=== PATIENT | female | born 1955 | race Caucasian/White ===

== ENCOUNTER → 2016-11-29 | Day surgery (SDC) | payer OTHER ==
[~2016-11-29] MED LIST: BIOT10TA PO; BUPR300T4 PO; CALC500T50 PO; CITA40TA12 PO; CLON0.5T3 PO; CYCL10TA2 PO; FENTANYL PF 100 MCG/2 ML VIAL. IV PRN; HYDROMORPHONE 2 MG/ML VIAL. IV PRN; IV RINGERS,LACTATED 1000ML 1,000 ML IV SCH; LEVO200T5 PO; LIDOCAINE 1% 1 ML SYRINGE. ID PRN; LIDOCAINE 2% PF Vial for OR 5 ML VIAL. ONE; MORPHINE SULFATE 2 MG/ML DISP.SYRIN. IV PRN; MULT1TAB52 PO; ONDANSETRON PF 4 MG/2 ML VIAL. IV PRN; PRED5DRO6 OP; PROCHLORPERAZINE 10 MG/2 ML VIAL. IV PRN; PROPOFOL 40 ML IV ONE
[2016-11-29 08:30] VITALS: BP 145/76
--- NOTE | 2016-12-02 14:15 | PATHOLOGY ---
PATHOLOGY REPORT * * * * * * * * FINAL DIAGNOSIS: A. Duodenal biopsy: - No significant pathologic abnormalities. B. Random colon biopsy: - No significant pathologic abnormalities. COMMENT: Sections of the duodenal biopsy reveal segments of small intestine mucosa. Where best oriented, the mucosal villi appear normal. There are no sprue-like changes or significant inflammatory changes. Sections of the random colon biopsy reveal multiple segments of colonic mucosa containing several small mucosal- associated lymphoid aggregates. There is no evidence of a chronic destructive colitis, lymphocytic colitis, or collagenous colitis. (JPM:mgr; d/t: 12/02/16) REPORT ELECTRONICALLY SIGNED BY: Dmitry Flood M.D. DATE/TIME: 12/02/2016 14:15 * * * * * * * * GROSS PATHOLOGY: A. Received in formalin labeled "Harmeet Weller, duodenal biopsy, R/O celiac sprue," are seven segments of landin soft tissue measuring 1.2 x 1.2 x 0.3 cm in aggregate dimensions and ranging from 0.3 to 0.7 cm in maximum dimension. The specimen is submitted entirely in cassette A1. B. Received in formalin labeled "Harmeet Weller, random colon biopsies," are multiple (greater than 10) segments of landin soft tissue measuring 1.5 x 1.3 x 0.3 cm in aggregate dimensions and ranging from 0.2 to 0.9 cm in maximum dimension. The specimen is submitted entirely in cassette B1. (CAA; 11/29/2016) INITIAL CPT CODE(S): A; 90224 B; 60449 Professional services performed by [facility] [place] [address] Technical services performed by [facility] at [address] [place] [address] [address] [address]. SPECIMEN(S) RECEIVED: A.Duodenal biopsy B.Random colon biopsies CLINICAL HISTORY: Abdominal pain, diarrhea PATIENT: HARMEET WELLER /AGE: 906/21/1955 (Age: 61) PATIENT #: [id number] ALT CASE #: SPECIMEN COLLECTION DATE: 11/29/2016 SPECIMEN RECEIVED DATE: 11/29/2016 [facility] - [address] [place] [address] - PHONE: [phone] * * * END OF REPORT * * *
== END | disposition home or self-care (01) ==
LOC: ENDOS 05:46
PROVIDERS: ATTEND Internal Medicine Gastroenterology
DX: K57.30 Diverticulosis of large intestine without perforation or abscess without bleeding (principal); K64.0 First degree hemorrhoids; K52.9 Noninfective gastroenteritis and colitis, unspecified; K31.9 Disease of stomach and duodenum, unspecified; Z98.84 Bariatric surgery status; F41.9 Anxiety disorder, unspecified; E03.9 Hypothyroidism, unspecified; M19.90 Unspecified osteoarthritis, unspecified site; Z72.89 Other problems related to lifestyle; Z87.891 Personal history of nicotine dependence; Z90.710 Acquired absence of both cervix and uterus; Z90.49 Acquired absence of other specified parts of digestive tract; Z98.51 Tubal ligation status; Z98.42 Cataract extraction status, left eye; Z98.41 Cataract extraction status, right eye
CPT/HCPCS: 43239; 45380; 88305; J2704

== ENCOUNTER 2016-12-24 14:06 | Emergency (ER) | payer OTHER ==
[~2016-12-24 14:06] MED LIST changes: -FENTANYL PF 100 MCG/2 ML VIAL. IV PRN; -HYDROMORPHONE 2 MG/ML VIAL. IV PRN; -IV RINGERS,LACTATED 1000ML 1,000 ML IV SCH; -LIDOCAINE 1% 1 ML SYRINGE. ID PRN; -LIDOCAINE 2% PF Vial for OR 5 ML VIAL. ONE; -MORPHINE SULFATE 2 MG/ML DISP.SYRIN. IV PRN; -ONDANSETRON PF 4 MG/2 ML VIAL. IV PRN; -PROCHLORPERAZINE 10 MG/2 ML VIAL. IV PRN; -PROPOFOL 40 ML IV ONE
[2016-12-24] MEDS ORDERED: LIPA1CAP8 PO (14:49)
[2016-12-24] MEDS ORDERED: ROPINIROLE 0.25 MG (14:49)
[2016-12-24] MEDS ORDERED: CITA40TA5 PO (14:49)
[2016-12-24] MEDS ORDERED: BUPR300T3 PO (14:49)
[2016-12-24] MEDS ORDERED: CLON0.5T3 PO (14:49)
[2016-12-24] MEDS ORDERED: LEVO200T5 PO (14:49)
[2016-12-24 15:04] LABS: BASO # 0.1 x10^3/uL (0.0-0.2); BASO % 1 % (0-3); EOS % 5 % (0-3); HEMATOCRIT 40.5 % (36.0-47.0); HEMOGLOBIN 13.6 g/dL (12.0-15.5); LYMPH # 2.3 x10^3/uL (1.0-4.8); LYMPH % 48 % (24-48); MEAN CORPUSCULAR HEMOGLOBIN 32 pg (25-35); MEAN CORPUSCULAR HGB CONC 34 g/dL (31-37); MEAN CORPUSCULAR VOLUME 95 fL (79-100); MONO % 11 % (0-9); NEUT % 35 % (31-73); PLATELET COUNT 215 x10^3/uL (140-400); RED BLOOD COUNT 4.27 x10^6/uL (3.50-5.40); RED CELL DISTRIBUTION WIDTH 14.3 % (11.5-14.5); WHITE BLOOD COUNT 4.7 x10^3/uL (4.0-11.0)
[2016-12-24 15:08] LABS: CALCIUM 9.4 mg/dL (8.5-10.1); CREATININE 0.9 mg/dL (0.6-1.0); GFR 63.4; POTASSIUM 3.9 mmol/L (3.5-5.1)
[2016-12-24 15:13] LABS: ALBUMIN 4.1 g/dL (3.4-5.0); DIRECT BILIRUBIN 0.1 mg/dL (0.0-0.2); TOTAL BILIRUBIN 0.7 mg/dL (0.2-1.0); TOTAL PROTEIN 7.3 g/dL (6.4-8.2)
[2016-12-24] MEDS ORDERED: IV NORMAL SALINE 500ML BAG 500 ML IV ONE (15:15)
[2016-12-24] MEDS ORDERED: FENTANYL PF 100 MCG/2 ML VIAL. IV ONE (15:45)
[2016-12-24] MEDS ORDERED: IOHEXOL 300 MG/ML 75 ML VIAL IV ONE (15:45)
[2016-12-24 16:30] VITALS: BP 131/74
--- NOTE | 2016-12-24 16:48 | RAD ---
CT scan of the abdomen and pelvis with contrast 12/24/2016 Clinical history: Abdominal pain for 2 months with nausea and diarrhea. Technique: After the intravenous administration of 75 cc of Omnipaque 300 only, contiguous, 5 mm axial sections were obtained to the abdomen and pelvis. One or more of the following individualized dose reduction techniques were utilized for this study: 1. Automated exposure control. 2. Adjustment of the mA and/or kV according to patient size. 3. Use of iterative reconstruction technique. Findings: Images through the lung bases demonstrate minimal dependent subsegmental atelectasis bilaterally. A 1.2 cm rounded low-attenuation structure is seen involving the left lobe of the liver. This is consistent with a hepatic cyst. Calcified granulomas are seen scattered throughout the spleen. The pancreas, adrenal glands and kidneys are within normal limits. Atherosclerotic calcification of the abdominal aorta and its branches is seen. The abdominal aorta tapers normally. Surgical clips are seen within the gallbladder fossa consistent with a cholecystectomy. No free fluid or free air is seen within the abdomen. There is no evidence of bowel obstruction. Patient is status post gastric bypass type procedure. The appendix is well visualized and is within normal limits. Images through the pelvis demonstrate the urinary bladder distended with urine. The patient appears to be status post hysterectomy. Calcifications are seen within the pelvis consistent with phleboliths. No adnexal mass is seen. No free fluid is noted. Minimal S shaped curvature of the thoracic lumbar spine is seen. Degenerative changes are seen involving the lower thoracic and throughout the lumbar spine and both hips. Patient is status post lumbar laminectomy at L3-4, L4-5 and L5-S1. Impression: No acute abnormality is seen.
[2016-12-24] MEDS ORDERED: DICY10CA3 PO (17:21)
--- NOTE | 2016-12-24 17:21 | PHYS DOC ---
Past Medical History Past Medical History: Arthritis, Pancreatitis Additional Past Medical Histor: DDD,GRAVES DISEASE Past Surgical History: Cholecystectomy, Hysterectomy, Lumbar Laminectomy, Tonsillectomy Additional Past Surgical Histo: THYROIDECTOMY,RIGHT SHOULDER,CARPEL TUNNEL Alcohol Use: None Drug Use: None Adult General Chief Complaint Chief Complaint: ABDOMINAL PAIN HPI HPI Patient is a 61 year old female who presents with months of epigastric abdominal pain associated with nausea and loose stools. States her epigastric abdominal pain is worse over the past 4 days. Her pain is constant and spasm- like. She has had thorough workup for this in the past and has been told it is pancreatitis. She recently started a clear liquid diet at home, but this has not helped her symptoms. She has seen gastroenterology for this in the past. She denies fever or chills, chest pain, dyspnea, cough, bloody stools, emesis, dysuria, hematuria, urinary frequency, urinary hesitancy, back pain. Review of Systems Review of Systems Constitutional: Denies fever or chills [] Eyes: Denies change in visual acuity, redness, or eye pain [] HENT: Denies nasal congestion or sore throat [] Respiratory: Denies cough or shortness of breath [] Cardiovascular: No additional information not addressed in HPI [] GI: Denies vomiting or bloody stools [] : Denies dysuria or hematuria [] Musculoskeletal: Denies back pain or joint pain [] Integument: Denies rash or skin lesions [] Neurologic: Denies headache, focal weakness or sensory changes [] Endocrine: Denies polyuria or polydipsia [] Current Medications Current Medications Current Medications Medications (Trade) Dose Ordered Sig/Marisa Start Time Stop Time Status Last Admin Dose Admin Fentanyl Citrate (Fentanyl 2ml Vial) 50 mcg 1X ONCE 12/24/16 15:45 12/24/16 15:46 DC 12/24/16 15:44 50 MCG Iohexol (Omnipaque 300 Mg/ml) 75 ml 1X ONCE 12/24/16 15:45 12/24/16 15:46 DC 12/24/16 16:10 75 ML Sodium Chloride (Iv Sodium Chloride 0.9% 500ml Bag) 500 ml @ 500 mls/hr 1X ONCE 12/24/16 15:15 12/24/16 16:14 DC 12/24/16 15:04 500 MLS/HR Allergies Allergies Allergies Coded Allergies Type Severity Reaction Last Updated Verified codeine Allergy Intermediate Itching 11/29/16 Yes morphine Allergy Intermediate Itching 11/29/16 Yes tolterodine Allergy Intermediate Anxiety 11/29/16 Yes Physical Exam Physical Exam Constitutional: Well developed, well nourished, no acute distress, non-toxic appearance. [] HENT: Normocephalic, atraumatic, bilateral external ears normal, oropharynx moist, no oral exudates, nose normal. [] Eyes: PERRLA, EOMI. [] Neck: Normal range of motion, supple. [] Cardiovascular:Heart rate regular rhythm [] Lungs & Thorax: Bilateral breath sounds clear to auscultation [] Abdomen: Bowel sounds normal, soft, moderate epigastric tenderness, no guarding or rebound. [] Skin: Warm, dry, no erythema, no rash. [] Back: Normal range of motion. [] Extremities: No tenderness, ROM intact, no edema. [] Neurologic: Alert and oriented X 3, normal motor function, normal sensory function, no focal deficits noted. [] Psychologic: Affect normal, judgement normal, mood normal. [] Current Patient Data Vital Signs Vital Signs Date Time Temp Pulse Resp B/P Pulse Ox O2 Delivery O2 Flow Rate FiO2 12/24/16 16:30 64 131/74 95 Room Air 12/24/16 14:14 18 Lab Values Laboratory Tests Test 12/24/16 14:29 White Blood Count 4.7x10^3/uL (4.0-11.0) Red Blood Count 4.27x10^6/uL (3.50-5.40) Hemoglobin 13.6g/dL (12.0-15.5) Hematocrit 40.5% (36.0-47.0) Mean Corpuscular Volume 95fL (79-100) Mean Corpuscular Hemoglobin 32pg (25-35) Mean Corpuscular Hemoglobin Concent 34g/dL (31-37) Red Cell Distribution Width 14.3% (11.5-14.5) Platelet Count 215x10^3/uL (140-400) Neutrophils (%) (Auto) 35% (31-73) Lymphocytes (%) (Auto) 48% (24-48) Monocytes (%) (Auto) 11% (0-9) H Eosinophils (%) (Auto) 5% (0-3) H Basophils (%) (Auto) 1% (0-3) Neutrophils # (Auto) 1.6x10^3uL (1.8-7.7) L Lymphocytes # (Auto) 2.3x10^3/uL (1.0-4.8) Monocytes # (Auto) 0.5x10^3/uL (0.0-1.1) Eosinophils # (Auto) 0.3x10^3/uL (0.0-0.7) Basophils # (Auto) 0.1x10^3/uL (0.0-0.2) Sodium Level 141mmol/L (136-145) Potassium Level 3.9mmol/L (3.5-5.1) Chloride Level 103mmol/L (98-107) Carbon Dioxide Level 30mmol/L (21-32) Anion Gap 8 (6-14) Blood Urea Nitrogen 11mg/dL (7-20) Creatinine 0.9mg/dL (0.6-1.0) Estimated GFR (Cockcroft-Gault) 63.4 Glucose Level 103mg/dL (70-99) H Calcium Level 9.4mg/dL (8.5-10.1) Total Bilirubin 0.7mg/dL (0.2-1.0) Direct Bilirubin 0.1mg/dL (0.0-0.2) Aspartate Amino Transferase (AST) 29U/L (15-37) Alanine Aminotransferase (ALT) 42U/L (14-59) Alkaline Phosphatase 68U/L (46-116) Total Protein 7.3g/dL (6.4-8.2) Albumin 4.1g/dL (3.4-5.0) Lipase 159U/L (73-393) Laboratory Tests 12/24/16 14:29 Laboratory Tests 12/24/16 14:29 Radiology/Procedures Radiology/Procedures CT abdomen and pelvis with IV contrast Impression: No acute abnormality is seen. DICTATED and SIGNED BY: CAITIE WALKER MD DATE: 12/24/16 9971 Course & Med Decision Making Course & Med Decision Making Pertinent Labs and Imaging studies reviewed. (See chart for details) Workup is unremarkable including imaging. Discussed she should follow-up with her primary care doctor as well as gastroenterology for her acute on chronic abdominal pain. Will give trial of Bentyl. Return precautions given. She and family understand plan. Dragon Disclaimer Dragon Disclaimer This electronic medical record was generated, in whole or in part, using a voice recognition dictation system. Departure Departure Impression: Primary Impression: Epigastric abdominal pain Additional Impression: Diarrhea Disposition: 01 HOME, SELF-CARE Condition: STABLE Referrals: SHUN ARANGO MD (PCP) Patient Instructions: Abdominal Pain, [id number] Additional Instructions: Take dicyclomine as needed for abdominal pain. Continue your other medications. Follow-up with your primary care doctor and GI doctor. Return for any concerns. Scripts Dicyclomine Hcl 10 Mg Capsule1 Cap PO PRN Q6HRS PRN PAIN #30 CAP Ref 0 Prov:Brigido BURGESS MD 12/24/16 Problem Qualifiers Additional Impression: Diarrhea Diarrhea type: unspecified type Qualified Code: R19.7 - Diarrhea, unspecified Brigido BRUGESS MD Dec 24, 2016 17:21
== END 2016-12-24 17:42 | disposition home or self-care (01) ==
LOC: ER 14:06
DX: R10.13 Epigastric pain (principal); R19.7 Diarrhea, unspecified; M19.90 Unspecified osteoarthritis, unspecified site; Z90.49 Acquired absence of other specified parts of digestive tract; Z90.710 Acquired absence of both cervix and uterus; Z88.5 Allergy status to narcotic agent; Z88.8 Allergy status to other drugs, medicaments and biological substances
CPT/HCPCS: 36415; 74177; 80048; 80076; 83690; 85027; 96361; 96374; 99285; J3010; J7040; Q9967

== ENCOUNTER → 2017-07-28 | Outpatient (CLI) | payer OTHER ==
[~2017-07-28] MED LIST changes: +BUPR300T3 PO; -CALC500T50 PO; +CALC500T54 PO; +CITA40TA5 PO; +DICY10CA3 PO; +LIPA1CAP8 PO; +PRED5DRO16 OP; -PRED5DRO6 OP; +ROPINIROLE 0.25 MG
--- NOTE | 2017-07-28 15:24 | KCIC ---
MRI left hip without contrast dated 07/28/2017 2:45 PM Indication: Left hip pain and instability. Previous back surgery , recent physical therapy. Comparison: No comparison is available. Technique: Routine multiplanar multisequence imaging performed. . Findings: Bone marrow signal is homogeneous. No marrow edema. There spondylotic changes of the lower lumbar spine, incompletely evaluated. Mild hypertrophic change at the left hip joint. Mild thinning of the articular cartilage with no full-thickness osteochondral defect. Mild blunted morphology and signal irregularity of the anterior superior left hip labrum. No displaced labral tear or para labral cyst. No joint effusion or loose body. Focal T2 hyperintense signal abnormality in thickening of the gluteus minimus tendon at its trochanteric attachment. There is mild interstitial partial tearing at the trochanteric attachment with small amount of trochanteric bursal fluid. Minimal increased signal of the gluteus medias, without discrete tear. Mild increased signal and thickening of the proximal hamstring tendon complex, without discrete tear. The iliopsoas is intact. Visualized soft tissue structures are otherwise unremarkable. No intramuscular edema. There is mild generalized fatty atrophy. Imaged portions of the pelvis are otherwise unremarkable. IMPRESSION: 1. Mild to moderate gluteus minimus tendinosis and partial tearing. There is small trochanteric bursal effusion. 2. Mild gluteus minimus tendinosis and mild proximal hamstring tendinosis. 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 There is early degenerative fraying of the anterior superior labrum. Electronically signed by: Alex Chaves MD (07/28/2017 3:22 PM) [id number]
== END | disposition home or self-care (01) ==
LOC: KCIC MRI 14:25
PROVIDERS: ATTEND Nurse Practitioner Family
DX: M16.12 Unilateral primary osteoarthritis, left hip (principal); M94.252 Chondromalacia, left hip; M25.352 Other instability, left hip; Z90.710 Acquired absence of both cervix and uterus
CPT/HCPCS: 73721

== ENCOUNTER 2018-02-28 05:06 | Observation (INO) | payer MEDICARE, OTHER ==
[2018-02-28] MEDS ORDERED: ONDANSETRON PF 4 MG/2 ML VIAL. IV (09:15)
[2018-02-28] MEDS ORDERED: hydrALAZINE 20 MG/ML VIAL. IVP (09:15)
[2018-02-28] MEDS ORDERED: DOCUSATE SODIUM 100 MG CAPSULE. PO (09:15)
[2018-02-28] MEDS: fentaNYL PF VIAL 100 MCG/2 ML VIAL IV ×3 (09:48→20:27)
[2018-02-28 11:05] LABS: ADD MAN DIFF? NO
[2018-02-28 11:07] LABS: BASO # 0.1 x10^3/uL (0.0-0.2); BASO % 1 % (0-3); EOS # 0.3 x10^3/uL (0.0-0.7); EOS % 7 % (0-3); HEMATOCRIT 21.5 % (36.0-47.0); HEMOGLOBIN 7.4 g/dL (12.0-15.5); LYMPH # 1.7 x10^3/uL (1.0-4.8); LYMPH % 39 % (24-48); MEAN CORPUSCULAR HEMOGLOBIN 34 pg (25-35); MEAN CORPUSCULAR HGB CONC 34 g/dL (31-37); MEAN CORPUSCULAR VOLUME 98 fL (79-100); MONO # 0.4 x10^3/uL (0.0-1.1); MONO % 9 % (0-9); NEUT % 44 % (31-73); PLATELET COUNT 158 x10^3/uL (140-400); RED BLOOD COUNT 2.18 x10^6/uL (3.50-5.40); WHITE BLOOD COUNT 4.5 x10^3/uL (4.0-11.0)
[2018-02-28 11:47] LABS: BLOOD UREA NITROGEN 19 mg/dL (7-20); BUN/CREATININE RATIO 27 (6-20); CARBON DIOXIDE 28 mmol/L (21-32); CREATININE 0.7 mg/dL (0.6-1.0); GFR 84.5; POTASSIUM 4.3 mmol/L (3.5-5.1)
[2018-02-28 11:53] LABS: ALBUMIN 2.6 g/dL (3.4-5.0); ALBUMIN/GLOBULIN RATIO 1.3 (1.0-1.7); ALK PHOS 41 U/L (46-116); ALT (SGPT) 17 U/L (14-59); AST (SGOT) 12 U/L (15-37); TOTAL BILIRUBIN 0.3 mg/dL (0.2-1.0); TOTAL PROTEIN 4.6 g/dL (6.4-8.2)
[2018-02-28 11:55] LABS: ANION GAP 5 (6-14); CALCIUM 7.5 mg/dL (8.5-10.1); CHLORIDE 113 mmol/L (98-107); GLUCOSE 104 mg/dL (70-99); SODIUM 146 mmol/L (136-145)
[2018-02-28 12:10] LABS: HEMATOCRIT 21.4 % (36.0-47.0); HEMOGLOBIN 7.1 g/dL (12.0-15.5); MEAN CORPUSCULAR HEMOGLOBIN 33 pg (25-35); MEAN CORPUSCULAR HGB CONC 33 g/dL (31-37); MEAN CORPUSCULAR VOLUME 99 fL (79-100); PLATELET COUNT 157 x10^3/uL (140-400); RED BLOOD COUNT 2.17 x10^6/uL (3.50-5.40); RED CELL DISTRIBUTION WIDTH 14.1 % (11.5-14.5); WHITE BLOOD COUNT 4.4 x10^3/uL (4.0-11.0)
[2018-02-28] MEDS: ACETAMINOPHEN 325 MG TABLET. PO ×2 (12:23→20:28)
[2018-02-28] MEDS: IV 1/2 NORMAL SALINE 1,000 ML IV ×2 (12:23→23:25)
[2018-02-28] MEDS: NORMAL SALINE IVP (15:27)
[2018-02-28] MEDS: LEVOTHYROXINE SODIUM IVP (15:27)
[2018-02-28 15:35] LABS: IMMEDIATE SPIN CROSSMATCH 1 2
[2018-02-28] MEDS: PANTOPRAZOLE IV PUSH 40 MG VIAL. IVP (17:47)
[2018-02-28 19:24] LABS: HEMATOCRIT 24.5 % (36.0-47.0); HEMOGLOBIN 8.3 g/dL (12.0-15.5); MEAN CORPUSCULAR HEMOGLOBIN 33 pg (25-35); MEAN CORPUSCULAR HGB CONC 34 g/dL (31-37); MEAN CORPUSCULAR VOLUME 96 fL (79-100); PLATELET COUNT 155 x10^3/uL (140-400); RED BLOOD COUNT 2.55 x10^6/uL (3.50-5.40); RED CELL DISTRIBUTION WIDTH 15.5 % (11.5-14.5); WHITE BLOOD COUNT 4.1 x10^3/uL (4.0-11.0)
[2018-03-01] MEDS: fentaNYL PF VIAL 100 MCG/2 ML VIAL IV ×3 (02:15→15:44)
[2018-03-01] MEDS: ACETAMINOPHEN 325 MG TABLET. PO ×3 (02:33→15:44)
[2018-03-01 05:19] LABS: ADD MAN DIFF? NO; BASO % 1 % (0-3); EOS # 0.5 x10^3/uL (0.0-0.7); EOS % 12 % (0-3); HEMATOCRIT 23.9 % (36.0-47.0); LYMPH # 1.6 x10^3/uL (1.0-4.8); LYMPH % 41 % (24-48); MEAN CORPUSCULAR HEMOGLOBIN 33 pg (25-35); MEAN CORPUSCULAR HGB CONC 34 g/dL (31-37); MEAN CORPUSCULAR VOLUME 97 fL (79-100); MONO # 0.3 x10^3/uL (0.0-1.1); MONO % 9 % (0-9); NEUT # 1.4 x10^3uL (1.8-7.7); NEUT % 37 % (31-73); PLATELET COUNT 145 x10^3/uL (140-400); RED BLOOD COUNT 2.47 x10^6/uL (3.50-5.40); RED CELL DISTRIBUTION WIDTH 15.4 % (11.5-14.5); WHITE BLOOD COUNT 3.8 x10^3/uL (4.0-11.0)
[2018-03-01 05:44] LABS: ANION GAP 6 (6-14); BLOOD UREA NITROGEN 12 mg/dL (7-20); CALCIUM 7.2 mg/dL (8.5-10.1); CARBON DIOXIDE 27 mmol/L (21-32); CHLORIDE 111 mmol/L (98-107); CREATININE 0.7 mg/dL (0.6-1.0); GFR 84.5; GLUCOSE 102 mg/dL (70-99); POTASSIUM 3.8 mmol/L (3.5-5.1); SODIUM 144 mmol/L (136-145)
[2018-03-01] MEDS: NORMAL SALINE IVP (08:54)
[2018-03-01] MEDS: LEVOTHYROXINE SODIUM IVP (08:54)
[2018-03-01] MEDS: PANTOPRAZOLE IV PUSH 40 MG VIAL. IVP (08:56)
[2018-03-01] MEDS: traMADol 50 MG TABLET PO ×2 (10:52→20:22)
[2018-03-01] MEDS: IV 1/2 NORMAL SALINE 1,000 ML IV (10:52)
[2018-03-01] MEDS: buPROPion XL 150 MG TAB.ER.24H. PO (13:40)
[2018-03-01] MEDS: LEVOTHYROXINE 150 MCG TABLET PO (13:40)
[2018-03-01] MEDS: rOPINIRole 0.25 MG TABLET. PO ×2 (13:41→20:22)
[2018-03-01] MEDS: MULTIVITAMIN with MINERAL TABLET. PO (13:41)
[2018-03-01] MEDS: CITALOPRAM 20 MG TABLET. PO (13:41)
[2018-03-01] MEDS: LIPASE/PROTEAS/AMYLAS 10/34/55 CAPSULE.DR. PO (16:41)
[2018-03-01] MEDS: DEXAMETHASONE 0.1% OPHTH SOLUTION 5ML BOTTLE. OU ×2 (16:43→21:00)
[2018-03-01] MEDS: DICYCLOMINE HCL 10 MG CAPSULE PO ×2 (16:43→20:22)
[2018-03-01] MEDS: PANTOPRAZOLE 40 MG TABLET.DR. PO (16:43)
[2018-03-01] MEDS: clonazePAM 1 MG TABLET PO (20:22)
[2018-03-02] MEDS: IV 1/2 NORMAL SALINE 1,000 ML IV (01:36)
[2018-03-02] MEDS: traMADol 50 MG TABLET PO ×2 (03:00→08:41)
[2018-03-02] MEDS: fentaNYL PF VIAL 100 MCG/2 ML VIAL IV ×2 (03:56→09:47)
[2018-03-02 04:36] LABS: ADD MAN DIFF? NO
[2018-03-02 04:43] LABS: BASO # 0.1 x10^3/uL (0.0-0.2); BASO % 1 % (0-3); EOS # 0.4 x10^3/uL (0.0-0.7); EOS % 11 % (0-3); HEMOGLOBIN 8.3 g/dL (12.0-15.5); LYMPH # 1.7 x10^3/uL (1.0-4.8); LYMPH % 42 % (24-48); MEAN CORPUSCULAR HEMOGLOBIN 33 pg (25-35); MEAN CORPUSCULAR HGB CONC 35 g/dL (31-37); MEAN CORPUSCULAR VOLUME 96 fL (79-100); MONO # 0.4 x10^3/uL (0.0-1.1); MONO % 10 % (0-9); NEUT # 1.4 x10^3uL (1.8-7.7); NEUT % 36 % (31-73); PLATELET COUNT 147 x10^3/uL (140-400); RED BLOOD COUNT 2.49 x10^6/uL (3.50-5.40); RED CELL DISTRIBUTION WIDTH 15.3 % (11.5-14.5)
[2018-03-02] MEDS: LEVOTHYROXINE 150 MCG TABLET PO (06:03)
[2018-03-02] MEDS: rOPINIRole 0.25 MG TABLET. PO (08:42)
[2018-03-02] MEDS: MULTIVITAMIN with MINERAL TABLET. PO (08:42)
[2018-03-02] MEDS: buPROPion XL 150 MG TAB.ER.24H. PO (08:42)
[2018-03-02] MEDS: PANTOPRAZOLE 40 MG TABLET.DR. PO (08:42)
[2018-03-02] MEDS: CITALOPRAM 20 MG TABLET. PO (08:42)
[2018-03-02] MEDS: DEXAMETHASONE 0.1% OPHTH SOLUTION 5ML BOTTLE. OU ×2 (08:43→12:58)
[2018-03-02] MEDS: DICYCLOMINE HCL 10 MG CAPSULE PO ×2 (08:43→11:42)
[2018-03-02] MEDS: ACETAMINOPHEN 325 MG TABLET. PO (12:58)
== END 2018-03-02 13:40 | disposition home or self-care (01) ==
LOC: 2 SOUTH 05:06
DX: K92.1 Melena (principal); E03.9 Hypothyroidism, unspecified; M81.0 Age-related osteoporosis without current pathological fracture; D64.9 Anemia, unspecified; F32.9 Major depressive disorder, single episode, unspecified; F41.9 Anxiety disorder, unspecified
CPT/HCPCS: 36415; 36430; 78278; 80048; 80053; 85025; 85027; 86850; 86900; 86901; 86920; 96374; 96375; 96376; A9560; C9113; G0378; G0379; J3010; P9016

== ENCOUNTER 2018-03-03 14:26 | Inpatient (IN) | payer MEDICARE ==
[2018-03-03 15:34] LABS: ADD MAN DIFF? NO
[2018-03-03 15:37] LABS: BASO % 1 % (0-3); EOS # 0.2 x10^3/uL (0.0-0.7); EOS % 6 % (0-3); HEMATOCRIT 25.3 % (36.0-47.0); HEMOGLOBIN 8.7 g/dL (12.0-15.5); LYMPH # 1.2 x10^3/uL (1.0-4.8); LYMPH % 29 % (24-48); MEAN CORPUSCULAR HEMOGLOBIN 33 pg (25-35); MEAN CORPUSCULAR HGB CONC 34 g/dL (31-37); MEAN CORPUSCULAR VOLUME 96 fL (79-100); MONO # 0.4 x10^3/uL (0.0-1.1); MONO % 9 % (0-9); NEUT # 2.3 x10^3uL (1.8-7.7); NEUT % 55 % (31-73); PLATELET COUNT 201 x10^3/uL (140-400); RED BLOOD COUNT 2.64 x10^6/uL (3.50-5.40); RED CELL DISTRIBUTION WIDTH 15.2 % (11.5-14.5); WHITE BLOOD COUNT 4.1 x10^3/uL (4.0-11.0)
[2018-03-03 15:50] LABS: PARTIAL THROMBOPLASTIN TIME 26 SEC (24-38); PROTHROMBIN TIME PATIENT 13.1 SEC (11.7-14.0)
[2018-03-03] MEDS: IV NORMAL SALINE 500ML BAG 500 ML IV (16:01)
[2018-03-03] MEDS: PANTOPRAZOLE IV PUSH 40 MG VIAL. IVP (16:02)
[2018-03-03 16:03] LABS: ANION GAP 9 (6-14); BLOOD UREA NITROGEN 8 mg/dL (7-20); CALCIUM 8.1 mg/dL (8.5-10.1); CARBON DIOXIDE 29 mmol/L (21-32); CHLORIDE 106 mmol/L (98-107); CREATININE 0.7 mg/dL (0.6-1.0); GFR 84.5; GLUCOSE 98 mg/dL (70-99); POTASSIUM 3.7 mmol/L (3.5-5.1); SODIUM 144 mmol/L (136-145)
[2018-03-03] MEDS: IV NORMAL SALINE 1000ML BAG 1,000 ML IV (16:06)
[2018-03-03 16:11] LABS: TROPONINI < 0.017 ng/mL (0.000-0.055)
[2018-03-03] MEDS ORDERED: ONDANSETRON PF 4 MG/2 ML VIAL. IV (16:15)
[2018-03-03 16:16] LABS: ALBUMIN 3.4 g/dL (3.4-5.0); ALK PHOS 54 U/L (46-116); ALT (SGPT) 26 U/L (14-59); AST (SGOT) 22 U/L (15-37); DIRECT BILIRUBIN 0.1 mg/dL (0.0-0.2); LIPASE 70 U/L (73-393); TOTAL BILIRUBIN 0.3 mg/dL (0.2-1.0); TOTAL PROTEIN 5.8 g/dL (6.4-8.2)
[2018-03-03] MEDS: fentaNYL PF VIAL 100 MCG/2 ML VIAL IV ×2 (16:46→17:46)
[2018-03-03 17:23] LABS: BILIRUBIN,URINE NEGATIVE (NEG); COLOR,URINE YELLOW; GLUCOSE,URINE NEGATIVE (NEG); NITRITE,URINE NEGATIVE (NEG); PH,URINE 7.5; PROTEIN,URINE NEGATIVE (NEG-TRACE); UROBILINOGEN,URINE 0.2 mg/dL (0.2 mg/dL)
[2018-03-03 17:34] LABS: BACTERIA,URINE 0 /HPF (0-FEW); CLARITY,URINE CLEAR; RBC,URINE 0 /HPF (0-2); SQUAMOUS EPITHELIAL CELL,UR OCC /LPF; WBC,URINE 0 /HPF (0-4)
[2018-03-03] MEDS ORDERED: DICYCLOMINE HCL 10 MG CAPSULE PO (18:30)
[2018-03-03] MEDS: rOPINIRole 0.25 MG TABLET. PO (20:02)
[2018-03-03] MEDS: oxyCODONE/APAP 5/325 1 TAB TABLET PO (20:03)
[2018-03-03] MEDS: DICYCLOMINE HCL 10 MG CAPSULE PO (20:04)
[2018-03-03] MEDS: clonazePAM 0.5 MG TABLET PO (20:05)
[2018-03-03 22:33] LABS: HEMATOCRIT 23.5 % (36.0-47.0); MEAN CORPUSCULAR HEMOGLOBIN 33 pg (25-35); MEAN CORPUSCULAR HGB CONC 34 g/dL (31-37); MEAN CORPUSCULAR VOLUME 96 fL (79-100); PLATELET COUNT 178 x10^3/uL (140-400); RED BLOOD COUNT 2.44 x10^6/uL (3.50-5.40); RED CELL DISTRIBUTION WIDTH 15.1 % (11.5-14.5); WHITE BLOOD COUNT 4.2 x10^3/uL (4.0-11.0)
[2018-03-04] MEDS: oxyCODONE/APAP 5/325 1 TAB TABLET PO ×4 (02:32→22:57)
[2018-03-04] MEDS: IV NORMAL SALINE 1000ML BAG 1,000 ML IV ×2 (02:33→16:44)
[2018-03-04 04:13] LABS: ADD MAN DIFF? NO
[2018-03-04 04:17] LABS: BASO # 0.1 x10^3/uL (0.0-0.2); BASO % 1 % (0-3); EOS # 0.4 x10^3/uL (0.0-0.7); EOS % 10 % (0-3); HEMATOCRIT 24.1 % (36.0-47.0); HEMOGLOBIN 8.3 g/dL (12.0-15.5); LYMPH # 1.9 x10^3/uL (1.0-4.8); LYMPH % 48 % (24-48); MEAN CORPUSCULAR HEMOGLOBIN 33 pg (25-35); MEAN CORPUSCULAR HGB CONC 34 g/dL (31-37); MEAN CORPUSCULAR VOLUME 97 fL (79-100); MONO # 0.4 x10^3/uL (0.0-1.1); MONO % 10 % (0-9); NEUT # 1.2 x10^3uL (1.8-7.7); NEUT % 31 % (31-73); PLATELET COUNT 180 x10^3/uL (140-400); RED CELL DISTRIBUTION WIDTH 14.8 % (11.5-14.5); WHITE BLOOD COUNT 3.9 x10^3/uL (4.0-11.0)
[2018-03-04 05:07] LABS: ANION GAP 6 (6-14); BLOOD UREA NITROGEN 7 mg/dL (7-20); CARBON DIOXIDE 30 mmol/L (21-32); CHLORIDE 108 mmol/L (98-107); CREATININE 0.7 mg/dL (0.6-1.0); GFR 84.5; GLUCOSE 88 mg/dL (70-99); POTASSIUM 3.4 mmol/L (3.5-5.1); SODIUM 144 mmol/L (136-145)
[2018-03-04] MEDS: LEVOTHYROXINE 150 MCG TABLET PO (06:02)
[2018-03-04] MEDS: MULTIVITAMIN with MINERAL TABLET. PO (07:50)
[2018-03-04] MEDS: DICYCLOMINE HCL 10 MG CAPSULE PO ×4 (08:35→20:18)
[2018-03-04] MEDS: buPROPion XL 150 MG TAB.ER.24H. PO (08:35)
[2018-03-04] MEDS: ARIPiprazole 5 MG TABLET PO (08:36)
[2018-03-04] MEDS: rOPINIRole 0.25 MG TABLET. PO ×3 (08:36→20:18)
[2018-03-04] MEDS: clonazePAM 0.5 MG TABLET PO ×2 (08:36→20:18)
[2018-03-04] MEDS: CITALOPRAM 20 MG TABLET. PO (08:36)
[2018-03-04] MEDS: PANTOPRAZOLE IV PUSH 40 MG VIAL. IVP (08:38)
[2018-03-04] MEDS: FLUTICASONE 50MCG/NASAL SPRAY 16GM BOTTLE. NS (08:39)
[2018-03-04] MEDS ORDERED: BUPROPION HCL PO (09:00)
[2018-03-04] MEDS ORDERED: BIOTIN 10 MG PO (09:00)
[2018-03-04] MEDS ORDERED: fentaNYL PF VIAL 100 MCG/2 ML VIAL IV ×2 (09:15)
[2018-03-04] MEDS ORDERED: LIDOCAINE 1% PF 2 ML VIAL. ID (09:15)
[2018-03-04] MEDS ORDERED: PROCHLORPERAZINE 10 MG/2 ML VIAL. IV (09:15)
[2018-03-04] MEDS: IV RINGERS,LACTATED 1000ML 1,000 ML IV ×2 (11:28→12:00)
[2018-03-04] MEDS ORDERED: PROPOFOL 20 ML IV (11:58)
[2018-03-04] MEDS ORDERED: LIDOCAINE 2% PF Vial for OR 5 ML VIAL. (11:58)
[2018-03-04] MEDS: DEXAMETHASONE 0.1% OPHTH SOLUTION 5ML BOTTLE. OU (15:52)
[2018-03-04] MEDS: CALCIUM CARBONATE 500 MG TAB.CHEW PO (15:54)
[2018-03-04 16:06] LABS: HEMATOCRIT 24.3 % (36.0-47.0); HEMOGLOBIN 8.4 g/dL (12.0-15.5); MEAN CORPUSCULAR HEMOGLOBIN 34 pg (25-35); MEAN CORPUSCULAR HGB CONC 34 g/dL (31-37); MEAN CORPUSCULAR VOLUME 97 fL (79-100); PLATELET COUNT 193 x10^3/uL (140-400); RED CELL DISTRIBUTION WIDTH 15.2 % (11.5-14.5)
[2018-03-04] MEDS: SUCRALFATE 1 GM TABLET. PO ×2 (16:15→20:19)
[2018-03-05] MEDS: IV RINGERS,LACTATED 1000ML 1,000 ML IV ×2 (01:45→18:39)
[2018-03-05] MEDS: PANTOPRAZOLE IV PUSH 40 MG VIAL. IVP (05:36)
[2018-03-05] MEDS: SUCRALFATE 1 GM TABLET. PO ×4 (05:36→21:36)
[2018-03-05] MEDS: LEVOTHYROXINE 150 MCG TABLET PO (05:37)
[2018-03-05] MEDS: oxyCODONE/APAP 5/325 1 TAB TABLET PO ×3 (05:40→21:37)
[2018-03-05 06:38] LABS: ADD MAN DIFF? NO
[2018-03-05 06:47] LABS: BASO % 1 % (0-3); EOS # 0.3 x10^3/uL (0.0-0.7); EOS % 9 % (0-3); HEMATOCRIT 25.5 % (36.0-47.0); HEMOGLOBIN 8.7 g/dL (12.0-15.5); LYMPH # 1.9 x10^3/uL (1.0-4.8); LYMPH % 50 % (24-48); MEAN CORPUSCULAR HEMOGLOBIN 33 pg (25-35); MEAN CORPUSCULAR HGB CONC 34 g/dL (31-37); MEAN CORPUSCULAR VOLUME 97 fL (79-100); MONO # 0.3 x10^3/uL (0.0-1.1); MONO % 9 % (0-9); NEUT # 1.2 x10^3uL (1.8-7.7); NEUT % 31 % (31-73); PLATELET COUNT 206 x10^3/uL (140-400); RED BLOOD COUNT 2.62 x10^6/uL (3.50-5.40); RED CELL DISTRIBUTION WIDTH 15.2 % (11.5-14.5); WHITE BLOOD COUNT 3.8 x10^3/uL (4.0-11.0)
[2018-03-05 07:00] LABS: ANION GAP 4 (6-14); BLOOD UREA NITROGEN 5 mg/dL (7-20); CALCIUM 7.6 mg/dL (8.5-10.1); CARBON DIOXIDE 31 mmol/L (21-32); CHLORIDE 111 mmol/L (98-107); CREATININE 0.7 mg/dL (0.6-1.0); GFR 84.5; GLUCOSE 85 mg/dL (70-99); POTASSIUM 3.9 mmol/L (3.5-5.1); SODIUM 146 mmol/L (136-145)
[2018-03-05] MEDS: FLUTICASONE 50MCG/NASAL SPRAY 16GM BOTTLE. NS (11:24)
[2018-03-05] MEDS: DEXAMETHASONE 0.1% OPHTH SOLUTION 5ML BOTTLE. OU (11:24)
[2018-03-05] MEDS: rOPINIRole 0.25 MG TABLET. PO ×3 (11:25→21:36)
[2018-03-05] MEDS: ARIPiprazole 5 MG TABLET PO (11:25)
[2018-03-05] MEDS: MULTIVITAMIN with MINERAL TABLET. PO (11:25)
[2018-03-05] MEDS: buPROPion XL 150 MG TAB.ER.24H. PO (11:26)
[2018-03-05] MEDS: clonazePAM 0.5 MG TABLET PO ×2 (11:26→21:36)
[2018-03-05] MEDS: CALCIUM CARBONATE 500 MG TAB.CHEW PO (11:26)
[2018-03-05] MEDS: CITALOPRAM 20 MG TABLET. PO (11:26)
[2018-03-05] MEDS: DICYCLOMINE HCL 10 MG CAPSULE PO ×4 (11:27→21:36)
[2018-03-06] MEDS: oxyCODONE/APAP 5/325 1 TAB TABLET PO ×3 (05:02→18:05)
[2018-03-06 05:53] LABS: ADD MAN DIFF? NO
[2018-03-06 05:58] LABS: BASO % 1 % (0-3); EOS # 0.4 x10^3/uL (0.0-0.7); EOS % 10 % (0-3); HEMATOCRIT 23.3 % (36.0-47.0); HEMOGLOBIN 7.9 g/dL (12.0-15.5); LYMPH # 1.8 x10^3/uL (1.0-4.8); LYMPH % 50 % (24-48); MEAN CORPUSCULAR HEMOGLOBIN 33 pg (25-35); MEAN CORPUSCULAR HGB CONC 34 g/dL (31-37); MEAN CORPUSCULAR VOLUME 96 fL (79-100); MONO # 0.3 x10^3/uL (0.0-1.1); MONO % 9 % (0-9); NEUT # 1.1 x10^3uL (1.8-7.7); NEUT % 30 % (31-73); PLATELET COUNT 210 x10^3/uL (140-400); RED BLOOD COUNT 2.43 x10^6/uL (3.50-5.40); RED CELL DISTRIBUTION WIDTH 14.8 % (11.5-14.5); WHITE BLOOD COUNT 3.7 x10^3/uL (4.0-11.0)
[2018-03-06 06:19] LABS: ANION GAP 3 (6-14); BLOOD UREA NITROGEN 6 mg/dL (7-20); CALCIUM 8.2 mg/dL (8.5-10.1); CARBON DIOXIDE 32 mmol/L (21-32); CHLORIDE 110 mmol/L (98-107); CREATININE 0.8 mg/dL (0.6-1.0); GFR 72.4; GLUCOSE 89 mg/dL (70-99); POTASSIUM 3.8 mmol/L (3.5-5.1); SODIUM 145 mmol/L (136-145)
[2018-03-06] MEDS: LEVOTHYROXINE 150 MCG TABLET PO (06:33)
[2018-03-06] MEDS: SUCRALFATE 1 GM TABLET. PO ×4 (06:33→20:26)
[2018-03-06] MEDS: PANTOPRAZOLE 40 MG TABLET.DR. PO ×2 (06:33→16:31)
[2018-03-06] MEDS: IV RINGERS,LACTATED 1000ML 1,000 ML IV ×2 (06:35→17:19)
[2018-03-06] MEDS: clonazePAM 0.5 MG TABLET PO ×2 (08:13→20:26)
[2018-03-06] MEDS: buPROPion XL 150 MG TAB.ER.24H. PO (08:13)
[2018-03-06] MEDS: CALCIUM CARBONATE 500 MG TAB.CHEW PO (08:14)
[2018-03-06] MEDS: DICYCLOMINE HCL 10 MG CAPSULE PO ×4 (08:14→20:26)
[2018-03-06] MEDS: ARIPiprazole 5 MG TABLET PO (08:14)
[2018-03-06] MEDS: CITALOPRAM 20 MG TABLET. PO (08:14)
[2018-03-06] MEDS: MULTIVITAMIN with MINERAL TABLET. PO (08:14)
[2018-03-06] MEDS: DEXAMETHASONE 0.1% OPHTH SOLUTION 5ML BOTTLE. OU (08:15)
[2018-03-06] MEDS: FLUTICASONE 50MCG/NASAL SPRAY 16GM BOTTLE. NS (08:15)
[2018-03-06] MEDS: rOPINIRole 0.25 MG TABLET. PO ×3 (08:15→20:26)
[2018-03-07] MEDS: LEVOTHYROXINE 150 MCG TABLET PO (06:20)
[2018-03-07] MEDS: PANTOPRAZOLE 40 MG TABLET.DR. PO (06:20)
[2018-03-07] MEDS: SUCRALFATE 1 GM TABLET. PO ×2 (06:20→10:04)
[2018-03-07] MEDS: IV RINGERS,LACTATED 1000ML 1,000 ML IV (06:20)
[2018-03-07] MEDS: oxyCODONE/APAP 5/325 1 TAB TABLET PO ×2 (06:34→12:17)
[2018-03-07] MEDS: ARIPiprazole 5 MG TABLET PO (10:02)
[2018-03-07] MEDS: CALCIUM CARBONATE 500 MG TAB.CHEW PO (10:03)
[2018-03-07] MEDS: rOPINIRole 0.25 MG TABLET. PO (10:03)
[2018-03-07] MEDS: DICYCLOMINE HCL 10 MG CAPSULE PO ×2 (10:03→12:18)
[2018-03-07] MEDS: FLUTICASONE 50MCG/NASAL SPRAY 16GM BOTTLE. NS (10:04)
[2018-03-07] MEDS: clonazePAM 0.5 MG TABLET PO (10:04)
[2018-03-07] MEDS: DEXAMETHASONE 0.1% OPHTH SOLUTION 5ML BOTTLE. OU (10:05)
[2018-03-07] MEDS: buPROPion XL 150 MG TAB.ER.24H. PO (10:05)
[2018-03-07] MEDS: MULTIVITAMIN with MINERAL TABLET. PO (10:06)
[2018-03-07 10:44] LABS: HEMATOCRIT 25.6 % (36.0-47.0); PLATELET COUNT 270 x10^3/uL (140-400); WHITE BLOOD COUNT 3.4 x10^3/uL (4.0-11.0)
[2018-03-07 10:51] LABS: ALBUMIN 2.7 g/dL (3.4-5.0); ALK PHOS 52 U/L (46-116); ALT (SGPT) 20 U/L (14-59); ANION GAP 4 (6-14); AST (SGOT) 15 U/L (15-37); BLOOD UREA NITROGEN 7 mg/dL (7-20); BUN/CREATININE RATIO 8 (6-20); CALCIUM 7.9 mg/dL (8.5-10.1); CARBON DIOXIDE 32 mmol/L (21-32); CHLORIDE 106 mmol/L (98-107); CREATININE 0.9 mg/dL (0.6-1.0); GFR 63.2; GLUCOSE 93 mg/dL (70-99); POTASSIUM 3.8 mmol/L (3.5-5.1); SODIUM 142 mmol/L (136-145); TOTAL BILIRUBIN 0.4 mg/dL (0.2-1.0); TOTAL PROTEIN 5.3 g/dL (6.4-8.2)
== END 2018-03-07 13:40 | disposition home or self-care (01) | DRG 378 ==
LOC: ER 14:26 → 5 NORTH 16:30
PROC: 0DB68ZX Excision of Stomach, Via Natural or Artificial Opening Endoscopic, Diagnostic (ICD-10-PCS; principal; 2018-03-04 12:00)
DX: K28.4 Chronic or unspecified gastrojejunal ulcer with hemorrhage (principal); D62 Acute posthemorrhagic anemia; K57.91 Diverticulosis of intestine, part unspecified, without perforation or abscess with bleeding; E89.0 Postprocedural hypothyroidism; F17.210 Nicotine dependence, cigarettes, uncomplicated; K21.9 Gastro-esophageal reflux disease without esophagitis; M19.90 Unspecified osteoarthritis, unspecified site; K92.1 Melena; Z82.49 Family history of ischemic heart disease and other diseases of the circulatory system; Z87.11 Personal history of peptic ulcer disease; Z90.710 Acquired absence of both cervix and uterus; Z98.84 Bariatric surgery status; Z90.49 Acquired absence of other specified parts of digestive tract; Z88.8 Allergy status to other drugs, medicaments and biological substances
CPT/HCPCS: 36415; 78278; 80048; 80053; 80076; 81001; 83605; 83690; 84484; 85025; 85027; 85610; 85730; 86850; 86900; 86901; 88305; 88342; 93005; 96361; 96374; 96375; 96376; 99285; 99285-25; A9560; C9113; J2704; J3010; J7030; J7040; J7120